=== PATIENT | male | born 1995 | race African-American/Black ===

== ENCOUNTER 2021-09-17 20:53 | Emergency (ER) | payer MEDICAID ==
[~2021-09-17] VITALS: Ht 193 cm; Wt 82.0 kg
[2021-09-17] MEDS ORDERED: HYDROCODONE/ACETAMINOPHEN 5/325MG TABLET PO ONE (23:00)
[2021-09-18] MEDS ORDERED: HYDR-4001 MT (01:19)
[2021-09-18 02:20] VITALS: BP 120/76
== END 2021-09-18 02:30 | disposition home or self-care (01) ==
LOC: ER 20:53
DX: S82.54XA Nondisplaced fracture of medial malleolus of right tibia, initial encounter for closed fracture (principal); S80.921A Unspecified superficial injury of right lower leg, initial encounter; V29.9XXA Motorcycle rider (driver) (passenger) injured in unspecified traffic accident, initial encounter; Y93.89 Activity, other specified; Y92.488 Other paved roadways as the place of occurrence of the external cause
CPT/HCPCS: 29505; 73562; 73590; 73610; 73630; 99284